=== PATIENT | female | born 1930 | race Caucasian/White ===

== ENCOUNTER 2017-01-07 22:41 | Observation (INO) | payer MEDICARE, OTHER ==
[~2017-01-07 22:41] MED LIST: ACETAMINOPHEN325 M2 PO; ADVAIR 1001 DISK W/D; ADVAIR HFA 115/12 GM; ADVAIR HFA 115/12 GM IH; ALDACTONE25 M1 PO; AMITRIPTYLINE H50 MG; AMITRIPTYLINE H75 MG; AMITRIPTYLINE H75 MG PO; AMLODIPINE BES2.5 MG PO; AMLODIPINE BESYL5 MG PO; ANTIVERT25 MG PO; ASPIR 8181 MG PO; ASPIR-TRIN325 M2 PO; ASPIRIN EC325 MG PO; ASPIRIN325 MG PO; ATIVAN0.5 M1 PO; AVAPRO75 M1 PO; B12 IM; BISACODYL10 MG/SU RC; CHOLESTYRAMINE L4 GM PO; CIPRO250 M2 PO; CIPRO250 MG PO; CIPRO500 M2 PO; CIPRO500 MG PO; CLARITHROMYCIN; CLARITIN10 M2 PO; COLACE100 MG PO; COMPAZINE10 M PO; COMPAZINE5 MG; CULTURELLE1 CA1 PO; CYANOCOBAL1000 MCG/3 SC; DARVOCET-N 1001 TAB PO; DEMADEX20 M1 PO; DESIPRAMINE HCL PO; DIOVAN80 M; DIOVAN80 M PO; DOK100 M2 PO; FELDENE20 MG; FLOMAX0.4 M1 PO; FLOMAX0.4 MG PO; FLOVENT13; GABAPENTIN; GABAPENTIN100 M1 PO; GABAPENTIN100 MG PO; GEMFIBROZIL600 MG; GLIPIZIDE ER10 M1 PO; GLIPIZIDE XL10 M1 PO; GLIPIZIDE XL10 MG PO; GLIPIZIDE10 MG; GLIPIZIDE5 MG; GLIPIZIDE5 MG PO; GLUCAGON EME1 MG/KIT IM; GLUCOPHAGE500 MG; GLUCOTROL XL10 MG PO; GLUCOTROL10 MG PO; GLUCOTROL5 M1 PO; GLUCOTROL5 MG PO; HUMALOG100 U/ML SQ; IMODIUM A-1 MG/7.51 PO; IMODIUM2 MG PO; IRBESARTAN75 MG PO; ISOSORBIDE DINI30 MG; ISOSORBIDE MONO30 MG PO; KEFLEX500 M1 PO; KEFLEX500 MG PO; LANTUS SOLOSTAR3 ML SC; LANTUS100 U/ML; LANTUS100 U/ML SC; LANTUS100 UNITS/ SC; LEVAQUIN250 M1 PO; LEVAQUIN500 MG PO; LEVAQUIN750 MG PO; LEVSIN/SL0.125 MG SL; LOMOTIL 2.5-0.1 EACH PO; LOMOTIL1 TA1 PO; LOPERAMIDE2 M3 PO; LOPID600 MG; LOPRESSOR50 MG; LOPRESSOR50 MG PO; MAGNESIUM400 M1 PO; MELOXICAM7.5 M1 PO; MELOXICAM7.5 MG PO; METFORMIN HCL500 MG; METOPROLOL TART50 MG PO; MICRO-K 1010 MEQ; MILK OF MA2400 MG/10 PO; MIRALAX119 G1 PO; MIRALAX17 G1 PO; MIRALAX17 GM PO; MIRTAZAPINE30 M2 PO; MOBIC7.5 M2 PO; MOTRIN800 MG PO; MULTI VITAMIN1 EAC2 PO; MULTI VITAMIN1 EACH PO; MULTIVITAMINS1 EAC6 PO; NEOSPORIN PLUS TP; NEURONTIN100 M1 PO; NEURONTIN100 MG PO; NORPRAMIN10 MG PO; NORVASC5 M1 PO; NORVASC5 M2 PO; NORVASC5 MG PO; NYSTATIN1 EA10 MC; NYSTATIN15 G1 TP; NYSTATIN15 GM TP; OMEPRAZOLE20 M3 PO; OMNICEF300 MG PO; ONDANSETRON ODT4 M1 PO; PENICILLIN V P250 MG PO; PHENERGAN25 MG PO; PIROXICAM20 MG; PLAVIX75 MG PO; POTASSIUM; POTASSIUM CHLO10 ME2 PO; POTASSIUM CHLO10 ME3 PO; POTASSIUM CHLO10 MEQ PO; POTASSIUM CHLO20 MEQ; PREVALITE PAC4 G/PKT; PREVALITE4 GM/PK3 PO; PRILOSEC10 MG PO; PRILOSEC20 MG PO; PRILOSEC40 MG PO; PROAIR HFA8.5 GM INH; PROLOPRIM100 MG PO; PROMETHAZINE12.5 M2 PO; PROVENTIL HFA6.7 G1 IH; PROVENTIL HFA6.7 G1 INH; PYRIDIUM200 MG PO; QUESTRAN LIGH4 G/PKT; REGLAN10 MG PO; REMERON15 MG PO; REMERON30 M1 PO; SENNA8.6 MG PO; SPIRONOLACTONE25 M2 PO; SYNTHROID100 MC1 PO; SYNTHROID88 MCG; SYNTHROID88 MCG PO; TALADINE300 MG PO; TAMIFLU75 MG PO; TESSALON PERLE100 M1 PO; TOPROL XL25 M1 PO; TORADOL PO; TORSEMIDE20 M2 PO; TRIGLIDE160 M1 PO; TRILIPIX135 MG PO; TRIMETHOPR100 MG/TAB PO; TRIMETHOPRIM100 M1 PO; TRIMETHOPRIM100 MG PO; TYLENOL EXTRA500 M1 PO; TYLENOL325 M1 PO; TYLENOL500 MG PO; TYLENOL650 MG PO; ULTRACET TABLET1 TAB PO; ULTRAM50 M1 PO; UTI-STAT L3875 MG/30 PO; VITAMIN C1000 M1 PO; VITAMIN C500 M1 PO; VITAMIN C500 M6 PO; VITAMIN D-1000 UNIT/ PO; VITAMIN D31000 UNI3 PO; ZANTAC300 M3 PO; ZOCOR20 MG PO; ZOCOR40 MG PO; ZOCOR80 MG; ZOFRAN4 M2 PO; ZOFRAN4 MG PO; [UNRECOGNIZED DRUG - OTHER] PR
[2017-01-07] MEDS ORDERED: TRIMETHOPRIM100 M1 PO (23:14)
[2017-01-07] MEDS ORDERED: COLACE100 M1 PO (23:16)
[2017-01-08 00:07] LABS: BASO % 0.3 % (0-2); EOS % 1.7 % (0-7); EOSINOPHIL ABSOLUTE COUNT 0.1 tho/cmm (0.0-0.7); HCT-HEMATOCRIT 37.1 % (34.0-49.0); HGB-HEMOGLOBIN 13.2 gm/dl (12.0-15.5); IMMATURE GRANULOCYTES ABSOLUTE 0.02 tho/cmm (0-0.03); IMMATURE GRANULOCYTES PERCENT 0.3 % (0-0.3); LYMPH % 40.1 % (20-45); LYMPH ABSOLUTE COUNT 2.6 tho/cmm (0.8-4.5); MCH (MEAN CORPUSCULAR HGB) 34.4 pg (28.0-32.0); MCHC MEAN CORPUSCULAR HGB CONC 35.6 % (32.0-36.0); MCV (MEAN CELL VOLUME) 96.6 fl (82.0-96.0); MEAN PLATELET VOLUME 10.2 cmc (9.4-12.4); MONO % 6.8 % (0-12); MONOCYTE ABSOLUTE COUNT 0.5 tho/cmm (0.0-1.2); NEUTROPHIL ABSOLUTE COUNT 3.3 tho/cmm (1.6-8.0); NEUTROPHIL-AUTOMATED 3.3 tho/cmm (1.6-8.0); NEUTROPHILS % 50.8 % (40-80); PLATELET COUNT 181 tho/cmm (150-450); RED BLOOD COUNT 3.84 mil/cmm (4.00-5.20); RED CELL DISTRIBUTION WIDTH 11.8 % (12.4-16.4); WHITE BLOOD COUNT 6.6 tho/cmm (4.0-10.0)
[2017-01-08 00:15] LABS: ALB/GLOB RATIO 1.1 (0.8-2.0); ALBUMIN 3.8 g/dl (3.5-5.0); ALKALINE PHOSPHATASE 105 U/L (33-138); ALT/SGPT 31 U/L (12-78); ANION GAP 17 mmol/L (0-20); AST/SGOT 30 U/L (10-40); BILIRUBIN,TOTAL 0.4 mg/dl (0-1.5); BLOOD UREA NITROGEN 22 mg/dl (6-24); CALCIUM 9.4 mg/dl (8.5-10.5); CARBON DIOXIDE-VENOUS 26 mmol/L (22-32); CHLORIDE 90 mmol/l (96-110); CREATININE 1.36 mg/dl (0.50-1.10); GLUCOSE 154 mg/dL (70-110); MAGNESIUM 1.5 mg/dl (1.8-2.6); POTASSIUM 4.9 mmol/L (3.7-5.1); SODIUM 128 mmol/L (135-145); eGFR VALUE FOR BLACK 40 mL/Min
[2017-01-08 00:19] LABS: TSH-THYROID STIMULATING HORM. 5.93 uIU/ml (0.40-3.80)
[2017-01-08 00:57] LABS: URINE BILIRUBIN NEGATIVE (NEG); URINE BLOOD NEGATIVE (NEG); URINE GLUCOSE (UA) NEGATIVE (NEG); URINE KETONE NEGATIVE (NEG); URINE LEUKOCYTE ESTERASE POSITIVE (NEG); URINE NITRITE NEGATIVE (NEG); URINE PROTEIN NEGATIVE (NEG); URINE SPECIFIC GRAVITY 1.005 (1.003-1.030)
[2017-01-08 00:59] LABS: URINE APPEARANCE HAZY; URINE COLOR YELLOW
[2017-01-08 01:07] LABS: URINE BACTERIA 4+; URINE EPITHELIAL CELLS RARE /[HPF] (0-10); URINE RBC 0 /[HPF] (0-5); URINE WBC 0-1 /[HPF] (0-5)
[2017-01-08 06:22] LABS: BASO % 0.3 % (0-2); EOS % 2.5 % (0-7); EOSINOPHIL ABSOLUTE COUNT 0.2 tho/cmm (0.0-0.7); HCT-HEMATOCRIT 34.3 % (34.0-49.0); HGB-HEMOGLOBIN 11.8 gm/dl (12.0-15.5); LYMPH % 44.1 % (20-45); LYMPH ABSOLUTE COUNT 2.7 tho/cmm (0.8-4.5); MCHC MEAN CORPUSCULAR HGB CONC 34.4 % (32.0-36.0); MCV (MEAN CELL VOLUME) 98.8 fl (82.0-96.0); MEAN PLATELET VOLUME 9.7 cmc (9.4-12.4); MONO % 12.1 % (0-12); MONOCYTE ABSOLUTE COUNT 0.7 tho/cmm (0.0-1.2); NEUTROPHIL ABSOLUTE COUNT 2.5 tho/cmm (1.6-8.0); NEUTROPHIL-AUTOMATED 2.5 tho/cmm (1.6-8.0); PLATELET COUNT 166 tho/cmm (150-450); RED BLOOD COUNT 3.47 mil/cmm (4.00-5.20); RED CELL DISTRIBUTION WIDTH 11.4 % (12.4-16.4)
[2017-01-08 06:33] LABS: ANION GAP 15 mmol/L (0-20); BLOOD UREA NITROGEN 21 mg/dl (6-24); CALCIUM 8.7 mg/dl (8.5-10.5); CARBON DIOXIDE-VENOUS 26 mmol/L (22-32); CHLORIDE 96 mmol/l (96-110); CREATININE 1.23 mg/dl (0.50-1.10); GLUCOSE 81 mg/dL (70-110); POTASSIUM 4.6 mmol/L (3.7-5.1); SODIUM 132 mmol/L (135-145); eGFR VALUE FOR BLACK 46 mL/Min
[2017-01-08 06:38] LABS: MAGNESIUM 2.6 mg/dl (1.8-2.6)
[2017-01-09 06:07] LABS: ANION GAP 14 mmol/L (0-20); BLOOD UREA NITROGEN 21 mg/dl (6-24); CALCIUM 8.4 mg/dl (8.5-10.5); CARBON DIOXIDE-VENOUS 24 mmol/L (22-32); CHLORIDE 96 mmol/l (96-110); MAGNESIUM 1.9 mg/dl (1.8-2.6); POTASSIUM 4.7 mmol/L (3.7-5.1); SODIUM 129 mmol/L (135-145); eGFR VALUE FOR BLACK 47 mL/Min
[2017-01-09 06:12] LABS: GLUCOSE 66 mg/dL (70-110)
[2017-01-10 05:28] LABS: BASO % 0.3 % (0-2); EOS % 2.3 % (0-7); EOSINOPHIL ABSOLUTE COUNT 0.2 tho/cmm (0.0-0.7); HCT-HEMATOCRIT 34.5 % (34.0-49.0); HGB-HEMOGLOBIN 11.5 gm/dl (12.0-15.5); IMMATURE GRANULOCYTES ABSOLUTE 0.01 tho/cmm (0-0.03); IMMATURE GRANULOCYTES PERCENT 0.2 % (0-0.3); LYMPH % 42.9 % (20-45); LYMPH ABSOLUTE COUNT 2.8 tho/cmm (0.8-4.5); MCH (MEAN CORPUSCULAR HGB) 33.2 pg (28.0-32.0); MCHC MEAN CORPUSCULAR HGB CONC 33.3 % (32.0-36.0); MCV (MEAN CELL VOLUME) 99.7 fl (82.0-96.0); MEAN PLATELET VOLUME 9.7 cmc (9.4-12.4); MONOCYTE ABSOLUTE COUNT 0.7 tho/cmm (0.0-1.2); NEUTROPHIL ABSOLUTE COUNT 2.9 tho/cmm (1.6-8.0); NEUTROPHIL-AUTOMATED 2.9 tho/cmm (1.6-8.0); NEUTROPHILS % 44.3 % (40-80); PLATELET COUNT 166 tho/cmm (150-450); RED BLOOD COUNT 3.46 mil/cmm (4.00-5.20); RED CELL DISTRIBUTION WIDTH 11.8 % (12.4-16.4); WHITE BLOOD COUNT 6.5 tho/cmm (4.0-10.0)
[2017-01-10 05:41] LABS: ANION GAP 12 mmol/L (0-20); BLOOD UREA NITROGEN 24 mg/dl (6-24); CALCIUM 8.6 mg/dl (8.5-10.5); CARBON DIOXIDE-VENOUS 27 mmol/L (22-32); CHLORIDE 95 mmol/l (96-110); CREATININE 1.44 mg/dl (0.50-1.10); GLUCOSE 87 mg/dL (70-110); POTASSIUM 4.8 mmol/L (3.7-5.1); SODIUM 129 mmol/L (135-145); eGFR VALUE FOR BLACK 38 mL/Min
[2017-01-10] MEDS ORDERED: TRIMETHOPRIM100 M1 PO (09:23)
[2017-01-10] MEDS ORDERED: LEVAQUIN250 M3 PO (09:24)
[2017-01-11 09:06] LABS: ANION GAP 13 mmol/L (0-20); BLOOD UREA NITROGEN 22 mg/dl (6-24); CALCIUM 9.4 mg/dl (8.5-10.5); CARBON DIOXIDE-VENOUS 27 mmol/L (22-32); CHLORIDE 96 mmol/l (96-110); POTASSIUM 4.9 mmol/L (3.7-5.1); SODIUM 131 mmol/L (135-145); eGFR VALUE FOR BLACK 43 mL/Min
[2017-01-11 09:09] LABS: GLUCOSE 134 mg/dL (70-110)
== END 2017-01-11 14:10 ==
LOC: EDMED 22:41 → EMR2 01-08 02:15 → CAR1 01-08 03:15
PROVIDERS: Emergency Medicine; Hospitalist; Nurse Practitioner; ADMIT Hospitalist
PROC: 4A0 Measurement and Monitoring, Physiological Systems, Measurement (ICD-10-PCS; principal; 2017-01-07)
PROC: 0T9B70Z Drainage of Bladder with Drainage Device, Via Natural or Artificial Opening (ICD-10-PCS; 2017-01-07)
DX: N39.0 Urinary tract infection, site not specified (principal); R33.9 Retention of urine, unspecified; E87.1 Hypo-osmolality and hyponatremia; E11.22 Type 2 diabetes mellitus with diabetic chronic kidney disease; I12.9 Hypertensive chronic kidney disease with stage 1 through stage 4 chronic kidney disease, or unspecified chronic kidney disease; N18.9 Chronic kidney disease, unspecified; Z86.73 Personal history of transient ischemic attack (TIA), and cerebral infarction without residual deficits; E78.5 Hyperlipidemia, unspecified; D64.9 Anemia, unspecified; R60.9 Edema, unspecified; Z90.710 Acquired absence of both cervix and uterus; Z79.899 Other long term (current) drug therapy; Z98.890 Other specified postprocedural states; Z95.1 Presence of aortocoronary bypass graft; Z88.6 Allergy status to analgesic agent; Z88.2 Allergy status to sulfonamides; Z88.8 Allergy status to other drugs, medicaments and biological substances
CPT/HCPCS: G0378; G8978-GO-CJ; G8978-GP-CK; G8979-GO-CK; G8979-GP-CJ; G8979-GP-CK; G8980-GO-CJ; G8980-GP-CJ; G8980-GP-CK; G8987-GO-CJ; G8987-GO-CK; G8988-GO-CJ; G8989-GO-CK; J1815; J1956; J2270; J2405; J3420; J3475; J7030